=== PATIENT | male | born 1980 ===

== ENCOUNTER 2022-11-20 16:05 | Emergency (ER) | payer OTHER, SELFPAY ==
--- NOTE | ~2022-11-20 | CT_ITS ---
EXAMINATION: CT head/brain wo IV con, CT cervical spine wo IV con INDICATION INFORMATION: Reason for Exam fall 8 feet COMPARISON: None TECHNIQUE: Separate noncontrast CT examinations of the head and cervical spine were performed. Coronal and sagittal images were created for each examination at the technologist workstation. This CT examination was performed using dose optimization techniques as appropriate, variously including the following: *Automated exposure control *Adjustment of mA and/or kV according to patient size (this includes techniques or standardized protocols for targeted exams where dose is matched to indication/reason for exam; i.e. extremities or head) *Use of iterative reconstruction technique DLP: 2552 mGy-cm FINDINGS: Head: No acute osseous or soft tissue abnormality. 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 The mastoid air cells and visualized portions of the paranasal sinuses are well aerated. There is no evidence of acute intracranial hemorrhage or territorial infarction. No abnormal mass effect or midline shift is seen. Helms to white matter differentiation is well preserved. No extra-axial fluid collections are identified. No hydrocephalus. Cervical spine: There is no evidence of acute cervical spine fracture. Vertebral bodies remain normal in height. Alignment is maintained. Mild degenerative disc disease at C5-C6 with loss of disc space height and posterior disc osteophyte complex. No pre- or paravertebral soft tissue abnormality is identified. Biapical pleural-parenchymal scarring with paraseptal emphysema. The thyroid gland is unremarkable. CT/CT cervical spine wo IV con IMPRESSION: 1. No acute intracranial abnormality. 2. No cervical spine fracture or traumatic malalignment. 3. 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
--- NOTE | ~2022-11-20 | CT_ITS ---
EXAMINATION: CT CHEST, ABDOMEN AND PELVIS WITH CONTRAST. CLINICAL INFORMATION: R and epigastric pain, fall 8 feet high. COMPARISON: No pertinent prior studies are available for comparison. TECHNIQUE: Multidetector volumetric imaging was performed from the thoracic inlet through the pubic symphysis following administration of 85 mL Omnipaque 300 intravenous contrast. Sagittal and coronal reformatted images were obtained on the technologist's workstation. This CT examination was performed using dose optimization techniques as appropriate, variously including the following: *Automated exposure control *Adjustment of mA and/or kV according to patient size (this includes techniques or standardized protocols for targeted exams where dose is matched to indication/reason for exam; i.e. extremities or head) *Use of iterative reconstruction technique DLP: 1407 mGy-cm FINDINGS: CHEST: Lung: Bibasilar dependent atelectasis. No pneumothorax Mediastinum: Small hiatal hernia with air-fluid level seen in the esophagus suggesting a component of esophageal dysmotility or reflux. The central vascular structures are unremarkable. No hilar or mediastinal lymphadenopathy. Pericardium/Pleura: No significant effusion. No pleural mass or thickening. Chest Wall/Axilla: Unremarkable. ABDOMEN/PELVIS: Peritoneal Space:No significant free air or free fluid identified. Liver, Gallbladder, Biliary Tree: Abnormal appearance to the liver with focal region of decreased attenuation centrally in segment 8 the liver approximately 6 cm in length. In the acute setting intrahepatic hematoma would be suspected but I do not appreciate any active contrast extravasation or perihepatic fluid. No biliary ductal dilatation The gallbladder is contracted but otherwise unremarkable with no evidence of radiopaque gallstones, gallbladder wall thickening, or obvious pericholecystic inflammatory changes. Pancreas: Unremarkable. Spleen: Unremarkable. Adrenal Glands: Unremarkable. Kidneys and Ureters: The kidneys are normal in size, shape, and attenuation. No hydronephrosis, hydroureter, or calculi seen. No perinephric stranding. Bladder: Unremarkable. Gastrointestinal Tract: A few scattered colonic diverticula are seen but no colonic wall thickening or pericolonic inflammatory change to suggest diverticulitis. Normal-appearing appendix in the right lower quadrant. Visualized small bowel unremarkable. Stomach relatively distended Abdominal Wall: No significant hernia is appreciated. Mild soft tissue stranding in the intra-abdominal wall of the right upper quadrant Lymphovascular Structures: No lymphadenopathy. The aorta is unremarkable.. Pelvic Viscera: Unremarkable. Osseus Structures: Minimally displaced fractures the lateral right sixth, seventh, and eighth ribs Spine: Normal anatomic alignment. No acute fracture or spondylolisthesis seen. Vertebral body heights and disc heights appear preserved. CT/CT abdomen pelvis w IV con IMPRESSION: 1. Minimally displaced fractures of the lateral right sixth, seventh, and eighth ribs. 2. Focal decreased attenuation centrally in segment 8 of the liver. In the acute traumatic setting hepatic hematoma would be suspected. I do not appreciate any active contrast extravasation or perihepatic fluid. No other visceral organ injury seen. 3. Small hiatal hernia with air-fluid level in the esophagus suggesting a component of esophageal dysmotility or reflux.
[2022-11-20 16:13] VITALS: BP 115/70; BP 120/65; PULSE 70; PULSE 77; RESP 18; TEMP 36.8; O2SAT 100; BMI 22.4
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
[2022-11-20 17:14] VITALS: RESP 18
[2022-11-20] MEDS: 0.9 % Sodium Chloride 1,000 ML 999 ML IVCONT (17:14)
[2022-11-20] MEDS: Morphine Sulfate 4 MG/ML CARTRIDGE IVPUSH (17:14)
[2022-11-20 17:53] VITALS: BP 120/82; PULSE 74; RESP 18; O2SAT 98
[2022-11-20 18:30] VITALS: BP 129/79; PULSE 83; RESP 16; O2SAT 98
[2022-11-20 18:52] LABS: MANUAL DIFF FLAG NO
[2022-11-20 18:55] LABS: Basophils Percent Auto 0.2 % (0-2); Eosinophils Absolute Auto 0.2 X10*3/uL (0.0-0.4); Eosinophils Percent Auto 1.4 % (0-4); Hematocrit 38.8 % (42.0-52.0); Imm Gran Abs Auto 0.05 X10*3/uL (0.00-0.03); Imm Gran Pct Auto 0.4 % (0.0-0.4); Lymphocytes Absolute Auto 0.8 X10*3/uL (1.2-4.9); Lymphocytes Percent Auto 6.1 % (20-40); Mean Corpuscular HGB Conc 33.5 g/dl (31.0-36.0); Mean Corpuscular Hemoglobin 30.6 pg (27.0-33.0); Mean Corpuscular Volume 91.3 fL (80.0-98.0); Mean Platelet Volume 9.8 fL (9.4-12.4); Monocytes Absolute Auto 1.4 X10*3/uL (0.1-1.2); Monocytes Percent Auto 11.2 % (2-11); Neutrophils Absolute Auto 10.1 x10*3/uL (2.0-8.3); Neutrophils Percent Auto 80.7 % (45-73); Platelet Count 198 X10*3/uL (160-400); Red Blood Count 4.25 X10*6/uL (4.60-5.80); White Blood Count 12.6 X10*3/uL (4.8-10.8)
[2022-11-20 19:13] LABS: Alanine Aminotransferase 178 U/L (0-40); Albumin Level 3.7 g/dL (3.5-5.0); Alkaline Phosphatase 63 U/L (39-117); Anion Gap 11 (12-20); Aspartate Amino Transferase 173 U/L (5-37); Bilirubin Direct 0.2 mg/dL (0.0-0.5); Bilirubin Total 0.6 mg/dL (0.0-1.0); Blood Urea Nitrogen 18 mg/dL (9-16); Calcium 8.5 mg/dL (8.4-10.2); Carbon Dioxide 23 mmol/L (22-29); Chloride 112 mmol/L (96-108); Creatinine Clr Calc Pharmacy 136.6; Estimated Glomerular Filt Rate > 60; Glucose Random 108 mg/dL (60-115); Lipase 13 U/L (8-78); Sodium 142 mmol/L (135-145)
[2022-11-20 19:44] VITALS: BP 120/77; PULSE 82; RESP 18; O2SAT 100
[2022-11-20] MEDS: HYDROmorphone HCl 1 MG/ML SYRINGE IVPUSH (19:50)
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
--- NOTE | 2022-11-20 20:45 | PC.NURSE ---
attempting to call nurse to nurse report to [facility] ED now.
--- NOTE | 2022-11-20 20:48 | MHC.EDTECH ---
[facility]'s Tx line called @2002 per for consult and a possible trauma tx, Gave pt info and awaiting a call back
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
--- NOTE | 2022-11-20 20:51 | PC.NURSE ---
nurse to nurse called to Teresa CAN @[facility] @20:52. ambulance transfer to [facility] now
== END 2022-11-20 20:52 | disposition short-term general hospital (02) ==
PROVIDERS: Emergency Provider Emergency Medicine
DX: S36.112A Contusion of liver, initial encounter (principal); R07.89 Other chest pain; R51.9 Headache, unspecified; M54.2 Cervicalgia; R10.2 Pelvic and perineal pain; W17.89XA Other fall from one level to another, initial encounter; Y93.9 Activity, unspecified; Y92.830 Public park as the place of occurrence of the external cause; Y99.9 Unspecified external cause status
CPT/HCPCS: 36415; 70450; 71260; 72125; 74177; 80048; 80076; 83690; 85025; 96361; 96374; 96375; 99285; J1170; J2270